=== PATIENT | female | born 1940 | race Caucasian/White ===

== ENCOUNTER 2017-05-05 11:18 | Inpatient (IN) | payer MEDICARE, OTHER, MEDICAID ==
[~2017-05-05] VITALS: Ht 167.6 cm; Wt 100.9 kg
[2017-05-05] MEDS ORDERED: [UNRECOGNIZED DRUG - REMARK] PO (14:35)
[2017-05-05] MEDS ORDERED: AMIODARONE HCL200 M1 PO (14:36)
[2017-05-05] MEDS ORDERED: AMITRIPTYLINE H10 M1 PO (14:40)
[2017-05-05] MEDS ORDERED: ARTIFICIAL TEAR1510 RIGHT EYE (14:41)
[2017-05-05] MEDS ORDERED: NORVASC5 M2 PO (14:41)
[2017-05-05] MEDS ORDERED: ASPIRIN81 M1 PO (14:41)
[2017-05-05] MEDS ORDERED: LIPITOR40 M1 PO (14:42)
[2017-05-05] MEDS ORDERED: COREG3.125 M1 PO (14:42)
[2017-05-05] MEDS ORDERED: COLACE100 M1 PO (14:42)
[2017-05-05] MEDS ORDERED: FEOSOL325 M1 PO (14:43)
[2017-05-05] MEDS ORDERED: LASIX40 M1 PO (14:43)
[2017-05-05] MEDS ORDERED: SYNTHROID50 MC1 PO (14:43)
[2017-05-05] MEDS ORDERED: LORADAMED10 M1 PO (14:44)
[2017-05-05] MEDS ORDERED: ATIVAN1 M2 PO (14:44)
[2017-05-05] MEDS ORDERED: PRINIVIL20 M1 PO (14:44)
[2017-05-05] MEDS ORDERED: PRENATAL-U CAPS1 CAP PO (14:45)
[2017-05-05] MEDS ORDERED: [UNRECOGNIZED DRUG - OTHER] (14:45)
[2017-05-05] MEDS ORDERED: POTASSIUM CHLO10 ME2 PO (14:46)
[2017-05-05] MEDS ORDERED: ROBITUSSIN LON118 M1 PO (14:47)
[2017-05-05] MEDS ORDERED: PROLIA60 MG/1 M1 SC (14:47)
[2017-05-05] MEDS ORDERED: SERTRALINE HCL50 M4 PO (14:48)
[2017-05-05] MEDS ORDERED: SALINE NASAL SP30 M1 (14:48)
[2017-05-05] MEDS ORDERED: DEMADEX20 M1 PO (14:48)
[2017-05-05] MEDS ORDERED: ULTRAM50 M1 PO (14:49)
[2017-05-05] MEDS ORDERED: TUMS200 MG PO (14:50)
[2017-05-05 17:32] LABS: BASO % 0.2 % (0-2); EOS % 0.7 % (0-7); EOSINOPHIL ABSOLUTE COUNT 0.1 tho/cmm (0.0-0.7); HCT-HEMATOCRIT 25.9 % (34.0-49.0); HGB-HEMOGLOBIN 8.8 gm/dl (12.0-15.5); IMMATURE GRANULOCYTES ABSOLUTE 0.04 tho/cmm (0-0.03); IMMATURE GRANULOCYTES PERCENT 0.3 % (0-0.3); LYMPH % 8.9 % (20-45); LYMPH ABSOLUTE COUNT 1.2 tho/cmm (0.8-4.5); MCH (MEAN CORPUSCULAR HGB) 28.1 pg (28.0-32.0); MCV (MEAN CELL VOLUME) 82.7 fl (82.0-96.0); MEAN PLATELET VOLUME 10.6 cmc (9.4-12.4); MONO % 7.9 % (0-12); MONOCYTE ABSOLUTE COUNT 1.1 tho/cmm (0.0-1.2); NEUTROPHIL ABSOLUTE COUNT 10.8 tho/cmm (1.6-8.0); NEUTROPHIL-AUTOMATED 10.8 tho/cmm (1.6-8.0); PLATELET COUNT 135 tho/cmm (150-450); RED BLOOD COUNT 3.13 mil/cmm (4.00-5.20); RED CELL DISTRIBUTION WIDTH 16.8 % (12.4-16.4); WHITE BLOOD COUNT 13.2 tho/cmm (4.0-10.0)
[2017-05-05 17:36] LABS: INR 1.8 INR (0.9-1.1); PROTHROMBIN TIME 21.7 SECONDS (9.0-13.6)
[2017-05-05 17:47] LABS: ALB/GLOB RATIO 0.4 (0.8-2.0); ALBUMIN 1.9 g/dl (3.5-5.0); ALKALINE PHOSPHATASE 298 U/L (33-138); ALT/SGPT 63 U/L (12-78); ANION GAP 12 mmol/L (0-20); AST/SGOT 165 U/L (10-40); BILIRUBIN,TOTAL 1.3 mg/dl (0-1.5); BLOOD UREA NITROGEN 65 mg/dl (6-24); C-REACTIVE PROTEIN 13.4 mg/dl (0-0.9); CALCIUM 7.3 mg/dl (8.5-10.5); CARBON DIOXIDE-VENOUS 22 mmol/L (22-32); CHLORIDE 107 mmol/l (96-110); CREATININE 3.02 mg/dl (0.50-1.10); GLUCOSE 80 mg/dL (70-110); MAGNESIUM 2.3 mg/dl (1.8-2.6); PHOSPHOROUS 4.5 mg/dl (2.5-4.9); POTASSIUM 4.5 mmol/L (3.7-5.1); SODIUM 136 mmol/L (135-145); eGFR VALUE FOR BLACK 17 mL/Min
[2017-05-05 18:04] LABS: PROCALCITONIN 0.85 ng/ml (0.05-0.09)
[2017-05-05 18:40] LABS: URINE BILIRUBIN NEGATIVE (NEG); URINE BLOOD SMALL (NEG); URINE GLUCOSE (UA) NEGATIVE (NEG); URINE KETONE NEGATIVE (NEG); URINE LEUKOCYTE ESTERASE NEGATIVE (NEG); URINE NITRITE NEGATIVE (NEG); URINE PROTEIN MODERATE (NEG)
[2017-05-05 18:42] LABS: URINE APPEARANCE CLOUDY; URINE COLOR YELLOW
[2017-05-05 18:48] LABS: URINE AMORPHOUS 2+; URINE WBC 0-1 /[HPF] (0-5)
[2017-05-05 18:52] LABS: URINE TOTAL PROTEIN-RANDOM 124.2 mg/dl (<11.8)
[2017-05-05 20:03] LABS: URINE PRT/CR RATIO 1.16 Ratio (0.0-0.20)
--- NOTE | 2017-05-06 00:42 | NUR ---
VIRTUAL NURSE NOTE: JAMIL THE PT'S DAUGHTER NOTIFED PER PT. REQUEST. HX OF CURRENT SITUATION GIVEN.
[2017-05-06 00:47] LABS: ABG CO2 ARTERIAL 20 mmol/L (21-27); ARTERIAL BLD GAS O2 SATURATION 95 % (95-98); ARTERIAL BLOOD GAS PCO2 30 mmHg (32-45); ARTERIAL PO2 73 mmHg (70-100); BICARBONATE 19 mmol/L (21-28); BLOOD GAS BASE EXCESS -4 mM/L (-/+3); PH 7.42 Units (7.35-7.45)
[2017-05-06 01:55] LABS: BASO % 0.1 % (0-2); EOSINOPHIL ABSOLUTE COUNT 0.1 tho/cmm (0.0-0.7); HCT-HEMATOCRIT 24.5 % (34.0-49.0); HGB-HEMOGLOBIN 8.4 gm/dl (12.0-15.5); IMMATURE GRANULOCYTES ABSOLUTE 0.06 tho/cmm (0-0.03); IMMATURE GRANULOCYTES PERCENT 0.4 % (0-0.3); LYMPH % 8.2 % (20-45); LYMPH ABSOLUTE COUNT 1.1 tho/cmm (0.8-4.5); MCH (MEAN CORPUSCULAR HGB) 28.5 pg (28.0-32.0); MCHC MEAN CORPUSCULAR HGB CONC 34.3 % (32.0-36.0); MCV (MEAN CELL VOLUME) 83.1 fl (82.0-96.0); MEAN PLATELET VOLUME 10.4 cmc (9.4-12.4); MONO % 8.5 % (0-12); MONOCYTE ABSOLUTE COUNT 1.1 tho/cmm (0.0-1.2); NEUTROPHILS % 81.8 % (40-80); PLATELET COUNT 128 tho/cmm (150-450); RED BLOOD COUNT 2.95 mil/cmm (4.00-5.20); RED CELL DISTRIBUTION WIDTH 16.8 % (12.4-16.4); WHITE BLOOD COUNT 13.4 tho/cmm (4.0-10.0)
[2017-05-06 02:08] LABS: ALB/GLOB RATIO 0.4 (0.8-2.0); ALBUMIN 1.9 g/dl (3.5-5.0); ALKALINE PHOSPHATASE 278 U/L (33-138); ALT/SGPT 60 U/L (12-78); BILIRUBIN,TOTAL 1.1 mg/dl (0-1.5); BLOOD UREA NITROGEN 67 mg/dl (6-24); CALCIUM 7.1 mg/dl (8.5-10.5); CARBON DIOXIDE-VENOUS 17 mmol/L (22-32); CHLORIDE 107 mmol/l (96-110); CREATININE 3.05 mg/dl (0.50-1.10); GLUCOSE 81 mg/dL (70-110); SODIUM 136 mmol/L (135-145); eGFR VALUE FOR BLACK 17 mL/Min
[2017-05-06 02:11] LABS: ANION GAP 17 mmol/L (0-20); AST/SGOT 146 U/L (10-40); POTASSIUM 4.8 mmol/L (3.7-5.1)
[2017-05-06 05:34] LABS: BASO % 0.1 % (0-2); EOS % 0.4 % (0-7); EOSINOPHIL ABSOLUTE COUNT 0.1 tho/cmm (0.0-0.7); HCT-HEMATOCRIT 24.8 % (34.0-49.0); HGB-HEMOGLOBIN 8.5 gm/dl (12.0-15.5); IMMATURE GRANULOCYTES ABSOLUTE 0.06 tho/cmm (0-0.03); IMMATURE GRANULOCYTES PERCENT 0.4 % (0-0.3); LYMPH % 5.9 % (20-45); MCH (MEAN CORPUSCULAR HGB) 28.5 pg (28.0-32.0); MCHC MEAN CORPUSCULAR HGB CONC 34.3 % (32.0-36.0); MCV (MEAN CELL VOLUME) 83.2 fl (82.0-96.0); MEAN PLATELET VOLUME 12.3 cmc (9.4-12.4); MONO % 6.6 % (0-12); MONOCYTE ABSOLUTE COUNT 1.1 tho/cmm (0.0-1.2); NEUTROPHIL ABSOLUTE COUNT 14.7 tho/cmm (1.6-8.0); NEUTROPHIL-AUTOMATED 14.7 tho/cmm (1.6-8.0); NEUTROPHILS % 86.6 % (40-80); PLATELET COUNT 182 tho/cmm (150-450); RED BLOOD COUNT 2.98 mil/cmm (4.00-5.20)
[2017-05-06 05:43] LABS: IRON 32 ug/dl (37-170); IRON BINDING CAPACITY 273 ug/dl (250-450)
[2017-05-06 05:49] LABS: ALBUMIN 1.9 g/dl (3.5-5.0); ANION GAP 21 mmol/L (0-20); BLOOD UREA NITROGEN 62 mg/dl (6-24); CALCIUM 6.7 mg/dl (8.5-10.5); CARBON DIOXIDE-VENOUS 19 mmol/L (22-32); CHLORIDE 98 mmol/l (96-110); CREATININE 3.07 mg/dl (0.50-1.10); POTASSIUM 4.8 mmol/L (3.7-5.1); SODIUM 133 mmol/L (135-145); eGFR VALUE FOR BLACK 17 mL/Min
[2017-05-06 05:53] LABS: GLUCOSE 374 mg/dL (70-110)
[2017-05-06 13:17] LABS: BLOOD UREA NITROGEN 70 mg/dl (6-24); CALCIUM 7.1 mg/dl (8.5-10.5); CARBON DIOXIDE-VENOUS 20 mmol/L (22-32); CREATININE 3.41 mg/dl (0.50-1.10); GLUCOSE 117 mg/dL (70-110); MAGNESIUM 2.4 mg/dl (1.8-2.6); eGFR VALUE FOR BLACK 15 mL/Min
[2017-05-06 13:18] LABS: ANION GAP 16 mmol/L (0-20); CHLORIDE 106 mmol/l (96-110); POTASSIUM 4.6 mmol/L (3.7-5.1); SODIUM 137 mmol/L (135-145)
[2017-05-06 18:44] LABS: ABG CO2 ARTERIAL 20 mmol/L (21-27); ARTERIAL BLD GAS O2 SATURATION 93 % (95-98); ARTERIAL BLOOD GAS PCO2 34 mmHg (32-45); ARTERIAL PO2 70 mmHg (70-100); BICARBONATE 18 mmol/L (21-28); BLOOD GAS BASE EXCESS -6 mM/L (-/+3); PH 7.35 Units (7.35-7.45)
[2017-05-06 21:19] LABS: ANION GAP 15 mmol/L (0-20); BLOOD UREA NITROGEN 72 mg/dl (6-24); CALCIUM 6.9 mg/dl (8.5-10.5); CARBON DIOXIDE-VENOUS 20 mmol/L (22-32); CHLORIDE 106 mmol/l (96-110); CREATININE 3.58 mg/dl (0.50-1.10); GLUCOSE 129 mg/dL (70-110); POTASSIUM 5.2 mmol/L (3.7-5.1); SODIUM 136 mmol/L (135-145); eGFR VALUE FOR BLACK 14 mL/Min
[2017-05-06 21:20] LABS: URINE BILIRUBIN SMALL (NEG); URINE BLOOD LARGE (NEG); URINE GLUCOSE (UA) NEGATIVE (NEG); URINE KETONE SMALL (NEG); URINE LEUKOCYTE ESTERASE POSITIVE (NEG); URINE NITRITE NEGATIVE (NEG); URINE PH 6.5 (5.0-8.0); URINE PROTEIN LARGE (NEG); URINE SPECIFIC GRAVITY 1.015 (1.003-1.030)
[2017-05-06 21:21] LABS: URINE APPEARANCE CLOUDY; URINE COLOR DARK YELLOW
[2017-05-06 21:25] LABS: URINE RBC FULL FIELD /[HPF] (0-5)
[2017-05-06 21:26] LABS: URINE EPITHELIAL CELLS 0 /[HPF] (0-10)
[2017-05-06 22:00] LABS: PROCALCITONIN 1.69 ng/ml (0.05-0.09)
[2017-05-06 23:58] LABS: ANION GAP 17 mmol/L (0-20); BLOOD UREA NITROGEN 71 mg/dl (6-24); CALCIUM 6.8 mg/dl (8.5-10.5); CARBON DIOXIDE-VENOUS 19 mmol/L (22-32); CHLORIDE 103 mmol/l (96-110); CREATININE 3.47 mg/dl (0.50-1.10); GLUCOSE 173 mg/dL (70-110); MAGNESIUM 2.3 mg/dl (1.8-2.6); PHOSPHOROUS 6.2 mg/dl (2.5-4.9); POTASSIUM 5.5 mmol/L (3.7-5.1); SODIUM 133 mmol/L (135-145); eGFR VALUE FOR BLACK 14 mL/Min
[2017-05-07 02:48] LABS: ANION GAP 12 mmol/L (0-20); BLOOD UREA NITROGEN 73 mg/dl (6-24); CALCIUM 6.6 mg/dl (8.5-10.5); CARBON DIOXIDE-VENOUS 21 mmol/L (22-32); CHLORIDE 104 mmol/l (96-110); CREATININE 3.62 mg/dl (0.50-1.10); GLUCOSE 169 mg/dL (70-110); MAGNESIUM 2.3 mg/dl (1.8-2.6); PHOSPHOROUS 6.1 mg/dl (2.5-4.9); POTASSIUM 5.3 mmol/L (3.7-5.1); SODIUM 132 mmol/L (135-145); eGFR VALUE FOR BLACK 14 mL/Min
[2017-05-07 05:07] LABS: BASO % 0.1 % (0-2); HCT-HEMATOCRIT 25.8 % (34.0-49.0); HGB-HEMOGLOBIN 8.8 gm/dl (12.0-15.5); IMMATURE GRANULOCYTES ABSOLUTE 0.06 tho/cmm (0-0.03); IMMATURE GRANULOCYTES PERCENT 0.4 % (0-0.3); LYMPH % 6.1 % (20-45); MCH (MEAN CORPUSCULAR HGB) 28.1 pg (28.0-32.0); MCHC MEAN CORPUSCULAR HGB CONC 34.1 % (32.0-36.0); MCV (MEAN CELL VOLUME) 82.4 fl (82.0-96.0); MONO % 5.2 % (0-12); MONOCYTE ABSOLUTE COUNT 0.9 tho/cmm (0.0-1.2); NEUTROPHIL ABSOLUTE COUNT 14.7 tho/cmm (1.6-8.0); NEUTROPHIL-AUTOMATED 14.7 tho/cmm (1.6-8.0); NEUTROPHILS % 88.2 % (40-80); PLATELET COUNT 188 tho/cmm (150-450); RED BLOOD COUNT 3.13 mil/cmm (4.00-5.20); RED CELL DISTRIBUTION WIDTH 16.8 % (12.4-16.4); WHITE BLOOD COUNT 16.7 tho/cmm (4.0-10.0)
[2017-05-07 05:24] LABS: ALB/GLOB RATIO 0.5 (0.8-2.0); ALBUMIN 2.4 g/dl (3.5-5.0); ALKALINE PHOSPHATASE 241 U/L (33-138); ALT/SGPT 57 U/L (12-78); ANION GAP 14 mmol/L (0-20); AST/SGOT 119 U/L (10-40); BILIRUBIN,TOTAL 1.3 mg/dl (0-1.5); BLOOD UREA NITROGEN 74 mg/dl (6-24); CALCIUM 6.7 mg/dl (8.5-10.5); CARBON DIOXIDE-VENOUS 19 mmol/L (22-32); CHLORIDE 103 mmol/l (96-110); CREATININE 3.62 mg/dl (0.50-1.10); GLUCOSE 136 mg/dL (70-110); MAGNESIUM 2.4 mg/dl (1.8-2.6); PHOSPHOROUS 6.2 mg/dl (2.5-4.9); POTASSIUM 5.4 mmol/L (3.7-5.1); SODIUM 131 mmol/L (135-145); eGFR VALUE FOR BLACK 14 mL/Min
[2017-05-07 11:56] LABS: ANION GAP 19 mmol/L (0-20); BLOOD UREA NITROGEN 79 mg/dl (6-24); CALCIUM 6.6 mg/dl (8.5-10.5); CARBON DIOXIDE-VENOUS 18 mmol/L (22-32); CHLORIDE 104 mmol/l (96-110); CREATININE 3.84 mg/dl (0.50-1.10); GLUCOSE 139 mg/dL (70-110); MAGNESIUM 2.4 mg/dl (1.8-2.6); PHOSPHOROUS 6.4 mg/dl (2.5-4.9); POTASSIUM 5.9 mmol/L (3.7-5.1); SODIUM 135 mmol/L (135-145); eGFR VALUE FOR BLACK 13 mL/Min
[2017-05-07 18:08] LABS: ANION GAP 17 mmol/L (0-20); BLOOD UREA NITROGEN 75 mg/dl (6-24); CALCIUM 6.7 mg/dl (8.5-10.5); CARBON DIOXIDE-VENOUS 18 mmol/L (22-32); CHLORIDE 102 mmol/l (96-110); CREATININE 3.86 mg/dl (0.50-1.10); GLUCOSE 135 mg/dL (70-110); POTASSIUM 5.6 mmol/L (3.7-5.1); SODIUM 131 mmol/L (135-145); eGFR VALUE FOR BLACK 13 mL/Min
[2017-05-08 07:36] LABS: HCT-HEMATOCRIT 24.7 % (34.0-49.0); HGB-HEMOGLOBIN 8.5 gm/dl (12.0-15.5); IMMATURE GRANULOCYTES ABSOLUTE 0.07 tho/cmm (0-0.03); IMMATURE GRANULOCYTES PERCENT 0.4 % (0-0.3); LYMPH % 4.8 % (20-45); LYMPH ABSOLUTE COUNT 0.8 tho/cmm (0.8-4.5); MCHC MEAN CORPUSCULAR HGB CONC 34.4 % (32.0-36.0); MCV (MEAN CELL VOLUME) 81.3 fl (82.0-96.0); MEAN PLATELET VOLUME 11.2 cmc (9.4-12.4); MONO % 6.8 % (0-12); MONOCYTE ABSOLUTE COUNT 1.2 tho/cmm (0.0-1.2); PLATELET COUNT 153 tho/cmm (150-450); RED BLOOD COUNT 3.04 mil/cmm (4.00-5.20); RED CELL DISTRIBUTION WIDTH 16.6 % (12.4-16.4)
[2017-05-08 07:49] LABS: ALB/GLOB RATIO 0.6 (0.8-2.0); ALBUMIN 2.8 g/dl (3.5-5.0); ALKALINE PHOSPHATASE 188 U/L (33-138); ALT/SGPT 47 U/L (12-78); ANION GAP 19 mmol/L (0-20); AST/SGOT 82 U/L (10-40); BILIRUBIN,TOTAL 1.3 mg/dl (0-1.5); BLOOD UREA NITROGEN 83 mg/dl (6-24); CARBON DIOXIDE-VENOUS 18 mmol/L (22-32); CHLORIDE 102 mmol/l (96-110); CREATININE 3.96 mg/dl (0.50-1.10); GLUCOSE 149 mg/dL (70-110); MAGNESIUM 2.4 mg/dl (1.8-2.6); PHOSPHOROUS 7.1 mg/dl (2.5-4.9); POTASSIUM 4.8 mmol/L (3.7-5.1); SODIUM 134 mmol/L (135-145); eGFR VALUE FOR BLACK 12 mL/Min
[2017-05-08 08:02] LABS: CALCIUM 6.4 mg/dl (8.5-10.5)
[2017-05-08 12:25] LABS: ANION GAP 21 mmol/L (0-20); BLOOD UREA NITROGEN 83 mg/dl (6-24); CALCIUM 6.7 mg/dl (8.5-10.5); CARBON DIOXIDE-VENOUS 17 mmol/L (22-32); CHLORIDE 102 mmol/l (96-110); CREATININE 3.97 mg/dl (0.50-1.10); GLUCOSE 148 mg/dL (70-110); MAGNESIUM 2.4 mg/dl (1.8-2.6); PHOSPHOROUS 6.6 mg/dl (2.5-4.9); POTASSIUM 4.6 mmol/L (3.7-5.1); SODIUM 135 mmol/L (135-145); eGFR VALUE FOR BLACK 12 mL/Min
[2017-05-08 19:42] LABS: ANION GAP 19 mmol/L (0-20); BLOOD UREA NITROGEN 85 mg/dl (6-24); CALCIUM 6.6 mg/dl (8.5-10.5); CARBON DIOXIDE-VENOUS 18 mmol/L (22-32); CHLORIDE 99 mmol/l (96-110); CREATININE 3.98 mg/dl (0.50-1.10); GLUCOSE 142 mg/dL (70-110); POTASSIUM 4.5 mmol/L (3.7-5.1); SODIUM 131 mmol/L (135-145); eGFR VALUE FOR BLACK 12 mL/Min
[2017-05-08 23:33] LABS: MAGNESIUM 2.3 mg/dl (1.8-2.6); PHOSPHOROUS 6.6 mg/dl (2.5-4.9)
[2017-05-09 04:49] LABS: HCT-HEMATOCRIT 24.1 % (34.0-49.0); HGB-HEMOGLOBIN 8.3 gm/dl (12.0-15.5); IMMATURE GRANULOCYTES ABSOLUTE 0.08 tho/cmm (0-0.03); IMMATURE GRANULOCYTES PERCENT 0.6 % (0-0.3); LYMPH % 3.3 % (20-45); LYMPH ABSOLUTE COUNT 0.5 tho/cmm (0.8-4.5); MCH (MEAN CORPUSCULAR HGB) 27.9 pg (28.0-32.0); MCHC MEAN CORPUSCULAR HGB CONC 34.4 % (32.0-36.0); MCV (MEAN CELL VOLUME) 81.1 fl (82.0-96.0); MEAN PLATELET VOLUME 10.6 cmc (9.4-12.4); MONOCYTE ABSOLUTE COUNT 0.7 tho/cmm (0.0-1.2); NEUTROPHILS % 91.1 % (40-80); PLATELET COUNT 108 tho/cmm (150-450); RED BLOOD COUNT 2.97 mil/cmm (4.00-5.20); RED CELL DISTRIBUTION WIDTH 16.7 % (12.4-16.4); WHITE BLOOD COUNT 14.3 tho/cmm (4.0-10.0)
[2017-05-09 05:02] LABS: ANION GAP 16 mmol/L (0-20); BLOOD UREA NITROGEN 85 mg/dl (6-24); CARBON DIOXIDE-VENOUS 18 mmol/L (22-32); CHLORIDE 101 mmol/l (96-110); CREATININE 4.12 mg/dl (0.50-1.10); GLUCOSE 138 mg/dL (70-110); MAGNESIUM 2.4 mg/dl (1.8-2.6); PHOSPHOROUS 6.9 mg/dl (2.5-4.9); POTASSIUM 4.3 mmol/L (3.7-5.1); SODIUM 131 mmol/L (135-145); eGFR VALUE FOR BLACK 12 mL/Min
[2017-05-09 05:39] LABS: CALCIUM 6.3 mg/dl (8.5-10.5)
--- NOTE | 2017-05-09 19:52 | NUR ---
DEFERRED 1600 ASSESSMENT, PT SPENDING TIME WITH FAMILY PRIOR TO COMFORT CARES, DISCUSSED PLAN WITH PT/FAMILY PRIOR TO GIVING MEDS AND REMOVING BIPAP AND IV SUPPORT TO INITIATE COMFORT CARES. PT PASSED CALMLY AFTER VISITING WITH FAMILY
== END 2017-05-09 17:35 | disposition expired | DRG 291 ==
LOC: 5WD 11:18 → CCU 13:44
PROVIDERS: Family Medicine; Internal Medicine; Internal Medicine Cardiovascular Disease; Internal Medicine Nephrology; ADMIT Internal Medicine
PROC: 02HV33Z Insertion of Infusion Device into Superior Vena Cava, Percutaneous Approach (ICD-10-PCS; principal; 2017-05-05)
PROC: 5A09357 Assistance with Respiratory Ventilation, Less than 24 Consecutive Hours, Continuous Positive Airway Pressure (ICD-10-PCS; 2017-05-06)
DX: I11.0 Hypertensive heart disease with heart failure (principal); J96.01 Acute respiratory failure with hypoxia; J18.9 Pneumonia, unspecified organism; N17.9 Acute kidney failure, unspecified; E44.0 Moderate protein-calorie malnutrition; I95.9 Hypotension, unspecified; I27.2 Other secondary pulmonary hypertension; F03.90 Unspecified dementia, unspecified severity, without behavioral disturbance, psychotic disturbance, mood disturbance, and anxiety; E87.1 Hypo-osmolality and hyponatremia; R00.1 Bradycardia, unspecified; I50.33 Acute on chronic diastolic (congestive) heart failure; I48.0 Paroxysmal atrial fibrillation; M19.90 Unspecified osteoarthritis, unspecified site; E03.9 Hypothyroidism, unspecified; I25.10 Atherosclerotic heart disease of native coronary artery without angina pectoris; E78.5 Hyperlipidemia, unspecified; Z66 Do not resuscitate; Z51.5 Encounter for palliative care; I07.1 Rheumatic tricuspid insufficiency; K21.9 Gastro-esophageal reflux disease without esophagitis; Z87.891 Personal history of nicotine dependence; E88.09 Other disorders of plasma-protein metabolism, not elsewhere classified; F32.9 Major depressive disorder, single episode, unspecified; F41.9 Anxiety disorder, unspecified; M81.0 Age-related osteoporosis without current pathological fracture; H54.42 Blindness, left eye, normal vision right eye; Z85.828 Personal history of other malignant neoplasm of skin; Z96.641 Presence of right artificial hip joint; E86.1 Hypovolemia; D50.9 Iron deficiency anemia, unspecified
CPT/HCPCS: C1751; C8924; C9113; G8996-GN-CN; G8997-GN-CM; J0456; J0610; J0696; J1265; J1644; J1720; J1940; J1956; J2060; J2270; J2405; J2543; J2920; J3370; J7030; J7050; P9045; P9047